=== PATIENT | male | born 1995 | race Caucasian/White ===

== ENCOUNTER 2019-02-08 12:43 | Observation (INO) | payer OTHER ==
[2019-02-08] MEDS ORDERED: Sodium Chloride 0.9% 1,000 ML IV ONE (14:21)
--- NOTE | 2019-02-08 14:25 | C.PDOC ---
History Of Present Illness 23 year old male presents to ED with complaint of infected abscess to the left upper extremity. Patient states that the abscess started as something small 2 weeks ago, but then became larger and starting draining. Patient has seeked no medical attention prior to today. He also complains of pain to the afflicted area. Patient denies IVDA. He denies fever, chills, diaphoresis, numbness, and weakness. Time Seen by Provider: 02/08/19 13:51 Chief Complaint (Nursing): Abnormal Skin Integrity History Per: Patient History/Exam Limitations: no limitations Onset/Duration Of Symptoms: Worse Since, Other (2 weeks) Current Symptoms Are (Timing): Still Present Quality Of Symptoms: Painful, Draining Past Medical History Reviewed: Historical Data, Nursing Documentation, Vital Signs Vital Signs: Last Vital Signs Temp 97.4 F L 02/08/19 12:52 Pulse 75 02/08/19 12:52 Resp 18 02/08/19 12:52 BP 113/74 02/08/19 12:52 Pulse Ox 100 02/08/19 12:52 - Medical History PMH: No Chronic Diseases Surgical History: No Surg Hx Family History: States: Unknown Family Hx - Social History Hx Alcohol Use: No Hx Substance Use: No - Immunization History Hx Tetanus Toxoid Vaccination: No Hx Influenza Vaccination: No Hx Pneumococcal Vaccination: No Review Of Systems Constitutional: Negative for: Fever, Chills, Weakness Musculoskeletal: Positive for: Arm Pain (left upper arm pain) Skin: Positive for: Other (infected, draining abscess to the left upper arm) Neurological: Negative for: Weakness, Numbness, Dizziness Physical Exam - Physical Exam Appears: Well, Non-toxic, No Acute Distress Skin: Normal Color, Warm, Dry Head: Atraumatic, Normacephalic Eye(s): bilateral: PERRL, EOMI Neck: Normal ROM, Supple Chest: Symmetrical, No Deformity Cardiovascular: Rhythm Regular, No Murmur Respiratory: No Accessory Muscle Use, No Rales, No Rhonchi, No Wheezing Gastrointestinal/Abdominal: Soft, No Tenderness Extremity: Normal ROM (able to flex the elbow of the left arm), Capillary Refill (<2 seconds), Other (3-4 cm fluctuant abscess with purulent drainage and surrounding cellulitis to the left upper arm that extends to the medial arm and is distal to the elbow, blanching and warm to touch) Pulses: Left Radial: Normal, Right Radial: Normal Neurological/Psych: Oriented x3, Normal Speech, Normal Cognition ED Course And Treatment - Laboratory Results Result Diagrams: 02/08/19 15:18 02/08/19 15:18 O2 Sat by Pulse Oximetry: 100 (in RA) Medical Decision Making Medical Decision Making: Impression: 23 year old male presents to ED with complaint of infected abscess to the left upper extremity. Plan: Labs ordered with CBC, blood culture, and wound culture. Patient given Zosyn IVPB, Motrin PO, and IV fluids. 1534 pt with absvess and surrounding cellu;itis crossing over joint; will admot to Dr Mancia for iv antibiotics Disposition Discussed With Dr.: Rena Mancia Doctor Will See Patient In The: Hospital Counseled Patient/Family Regarding: Diagnosis - Disposition Disposition: HOSPITALIZED Disposition Time: 15:55 Condition: GOOD Forms: [facility] ([place]) - Clinical Impression Clinical Impression: Cellulitis of left upper extremity, Abscess of left arm - PA / TIME STUDY CLERK / Resident Statement MD/DO has reviewed & agrees with the documentation as recorded. (Alva Wolff) - Scribe Statement The provider has reviewed the documentation as recorded by the Scribe (Alva Wolff) All medical record entries made by the Scribe were at my direction and personally dictated by me. I have reviewed the chart and agree that the record accurately reflects my personal performance of the history, physical exam, medical decision making, and the department course for this patient. I have also personally directed, reviewed, and agree with the discharge instructions and disposition.
[2019-02-08] MEDS ORDERED: Piperacillin/Tazobact 3.375 GM in Sodium Chloride 100 ML IVPB STA (14:31)
[2019-02-08 15:22] LABS: BASO # 0.1 K/uL (0.0-0.2); BASO % 0.9 % (0.0-2.0); EOS # 0.3 K/uL (0.0-0.7); EOS % 3.7 % (0.0-4.0); HEMOGLOBIN 14.7 g/dL (12.0-18.0); LYMPH # 1.9 K/uL (1.0-4.3); LYMPH % 22.2 % (20.0-40.0); MEAN CELL VOLUME 85.1 fL (80.0-94.0); MEAN CORPUSCULAR HEMOGLOBIN 28.7 pg (27.0-31.0); MEAN CORPUSCULAR HGB CONC 33.7 g/dL (33.0-37.0); MONO # 0.6 K/uL (0.0-0.8); MONO % 7.4 % (0.0-10.0); NEUT # 5.6 K/uL (1.8-7.0); NEUT % 65.8 % (50.0-75.0); RBC 5.14 Mil/uL (4.40-5.90); WHITE BLOOD COUNT 8.5 K/uL (4.8-10.8)
[2019-02-08 15:41] LABS: ALB/GLOB RATIO 1.6 (1.0-2.1); ALBUMIN 4.7 g/dL (3.5-5.0); ALT/SGPT 10 U/L (21-72); AST/SGOT 32 U/L (17-59); BLOOD UREA NITROGEN 15 mg/dL (9-20); CALCIUM 9.5 mg/dl (8.6-10.4); GFR NON-AFRICAN AMERICAN > 60
[2019-02-08] MEDS ORDERED: Tmp-Smz 800 mg-160 mg DS Tab PO STA (15:49)
[2019-02-08] MEDS ORDERED: Piperacillin/Tazobact 3.375 gm 100 ML IVPB ONE (16:03)
--- NOTE | 2019-02-08 16:49 | CP.PCM.HP ---
<Helena Garcia - Last Filed: 02/08/19 17:02> History of Present Illness - History of Present Illness History of Present Illness: Medicine H&P for Dr. Gonzalez's service CC: cellulitis w/ possible abscess Patient is a 23 yo w/ no PMH comes to ED for evaluation of left upper extremity redness with fluctuance and blood/water drainage. Patient states that this started two weeks ago. It got progressively worse with subjective fevers. Patient recently emigrated from [facility] and lives with his cousins. Patient states that it is painful if it is touched. Pain reports blood and water drainage. Denies previous episodes, IV drug use or trauma to the area. Patient states he took no medications at home. Patient denies chills, chest pain, sob, n/v, constipation or diarrhea, radiation of pain, and dysuria. PMH: Denies PSH: Denies FH: Denies Allergies: Denies Social: Denies etoh use, tobacco use, and recreational drug use PMD: None Code: Full code Present on Admission - Present on Admission Any Indicators Present on Admission: No Review of Systems - Review of Systems All systems: reviewed and no additional remarkable complaints except Review of Systems: see HPI Past Patient History - Infectious Disease Hx of Infectious Diseases: None - Past Social History Smoking Status: Never Smoked - PSYCHIATRIC Hx Substance Use: No - SURGICAL HISTORY Hx Surgeries: No - ANESTHESIA Hx Anesthesia: No Meds Allergies/Adverse Reactions: Allergies Allergy/AdvReac Type Severity Reaction Status Date / Time No Known Allergies Allergy Verified 02/08/19 12:57 Physical Exam - Constitutional Appears: Non-toxic, No Acute Distress - Head Exam Head Exam: NORMAL INSPECTION, NORMOCEPHALIC - Eye Exam Eye Exam: EOMI, Normal appearance. absent: Nystagmus, Scleral icterus - ENT Exam ENT Exam: Mucous Membranes Moist - Respiratory Exam Respiratory Exam: Clear to Auscultation Bilateral, NORMAL BREATHING PATTERN. absent: Rales, Rhonchi, Wheezes - Cardiovascular Exam Cardiovascular Exam: REGULAR RHYTHM, +S1, +S2. absent: Tachycardia - Extremities Exam Additional comments: left upper extremity near bicep region has demarcated erythema with fluctuance, visible is blood drainage through a superficial opening - Neurological Exam Neurological exam: Alert, Oriented x3 - Psychiatric Exam Psychiatric exam: Normal Affect, Normal Mood - Skin Skin Exam: Dry, Intact, Normal Color Results - Vital Signs Recent Vital Signs: Last Vital Signs Temp 97.4 F L 02/08/19 12:52 Pulse 75 02/08/19 12:52 Resp 18 02/08/19 12:52 BP 113/74 02/08/19 12:52 Pulse Ox 100 02/08/19 15:56 - Labs Result Diagrams: 02/08/19 15:18 02/08/19 15:18 Labs: Laboratory Results - last 24 hr 02/08/19 02/08/19 15:18 15:18 WBC 8.5 RBC 5.14 Hgb 14.7 Hct 43.7 MCV 85.1 MCH 28.7 MCHC 33.7 RDW 13.0 Plt Count 276 MPV 7.0 L Neut % (Auto) 65.8 Lymph % (Auto) 22.2 [place] % (Auto) 7.4 Eos % (Auto) 3.7 Baso % (Auto) 0.9 Neut # (Auto) 5.6 Lymph # (Auto) 1.9 [place] # (Auto) 0.6 Eos # (Auto) 0.3 Baso # (Auto) 0.1 Sodium 138 Potassium 4.2 Chloride 102 Carbon Dioxide 30 Anion Gap 11 BUN 15 Creatinine 0.8 Est GFR ( Amer) > 60 Est GFR (Non-Af Amer) > 60 Random Glucose 95 Calcium 9.5 Total Bilirubin 0.6 AST 32 ALT 10 L Alkaline Phosphatase 85 Total Protein 7.6 Albumin 4.7 Globulin 2.9 Albumin/Globulin Ratio 1.6 Assessment & Plan - Assessment and Plan (Free Text) Assessment: 23 yo male admitted for cellulitis with possible abscess. Blood drainage is noted. Plan: Left Upper Extremity Cellulitis w/ possible abscess afebrile, no white count Continue IV abx: Vanc 1gm IVPB q12; Zosyn 3.375gm IVPB q6 [address] Upper [address] CT with contrast pending to rule out abscess US pending of upper extremity Ibuprofen 400mg q6h chelly for swelling Repeat CBC, CMP in AM PPX GI: Florastor 250mg po bid DVT: not indicated Regular Diet Disposition: pending CT scan for possible surgical consult for drainage PGY-1 Helena Garcia Case d/w Dr. Gonzalez <Missy Gonzalez V - Last Filed: 02/08/19 17:41> Results - Vital Signs Recent Vital Signs: Last Vital Signs Temp 97.4 F L 02/08/19 12:52 Pulse 75 02/08/19 12:52 Resp 18 02/08/19 12:52 BP 113/74 02/08/19 12:52 Pulse Ox 100 02/08/19 15:56 - Labs Result Diagrams: 02/08/19 15:18 02/08/19 15:18 Labs: Laboratory Results - last 24 hr 02/08/19 02/08/19 15:18 15:18 WBC 8.5 RBC 5.14 Hgb 14.7 Hct 43.7 MCV 85.1 MCH 28.7 MCHC 33.7 RDW 13.0 Plt Count 276 MPV 7.0 L Neut % (Auto) 65.8 Lymph % (Auto) 22.2 [place] % (Auto) 7.4 Eos % (Auto) 3.7 Baso % (Auto) 0.9 Neut # (Auto) 5.6 Lymph # (Auto) 1.9 [place] # (Auto) 0.6 Eos # (Auto) 0.3 Baso # (Auto) 0.1 Sodium 138 Potassium 4.2 Chloride 102 Carbon Dioxide 30 Anion Gap 11 BUN 15 Creatinine 0.8 Est GFR ( Amer) > 60 Est GFR (Non-Af Amer) > 60 Random Glucose 95 Calcium 9.5 Total Bilirubin 0.6 AST 32 ALT 10 L Alkaline Phosphatase 85 Total Protein 7.6 Albumin 4.7 Globulin 2.9 Albumin/Globulin Ratio 1.6 Attending/Attestation - Attestation I have personally seen and examined this patient.: Yes I have fully participated in the care of the patient.: Yes I have reviewed all pertinent clinical information: Yes Notes (Text): Patient seen, examined and case discussed with day-time resident. Patient reports 2 week history of pimple which worsened over the past week; which he scratched at. He did not attempt medications or visit hospital. He noted the swelling worsen this week and redness got worse. patient afebrile, no white count. Concern for underlying abscess with associated cellulitis. Pulses in the arm is intact and rash is outline. patient will benefit from intravenous antibiotics given the severity of the cellulitis and may require surgery intervention pending the results of the CT scan and ultrasound. Assessment/Plan 1. Left Upper Extremity Cellulitis Possible Abscess Assessment/Plan * afebrile, no white count * Continue IV abx: Vanc 1gm IVPB q12; Zosyn 3.375gm IVPB q6 * Left Upper Extremity CT with contrast pending to rule out abscess * Nonextremity US pending of upper extremity left * May require surgery consult pending results * ordered for coagulation * Tylenol 650mg POq6H PRN moderate pain * Blood cultures ordered * Wound culture and gram stain 2. PPX * GI PPx: Florastor 250mg po bid * DVT PPx: not indicated * Regular Diet * NS 100cc/hr * SCDS b/l
[2019-02-08] MEDS ORDERED: Piperacill/Tazo 3.375gm in Dex 3.375 GM/50 ML BAG IVPB SCH (17:00)
[2019-02-08] MEDS ORDERED: Tmp-Smz 800 mg-160 mg DS Tab ONE (17:11)
[2019-02-08] MEDS ORDERED: Iodixanol 320 MG/ML 100 ML BOTTLE IV ONE (18:57)
[2019-02-08] MEDS: Sodium Chloride 0.9% 1,000 ML IV SCH (19:13)
[2019-02-08] MEDS ORDERED: Vancomycin 1 GM 0 GM/0 ML BAG IVPB ONE (20:11)
[2019-02-08] MEDS: Vancomycin 1 gm/NS 200 ml 1 GM/200 ML BAG IVPB SCH (20:21)
[2019-02-08] MEDS: Saccharomyces Boulardi 250 mg Cap PO SCH (20:23)
[2019-02-08 20:40] LABS: BARBITURATES, UR NEGATIVE (NEGATIVE); BENZODIAZEPINES, UR NEGATIVE (NEGATIVE); OPIATES, UR NEGATIVE (NEGATIVE)
[2019-02-08 20:41] LABS: PHENCYCLIDINE, UR NEGATIVE (NEGATIVE)
[2019-02-08 20:49] LABS: INR 1.1; PROTHROMBIN TIME 12.4 SECONDS (9.7-12.2)
[2019-02-08 21:40] VITALS: RESP 20
[2019-02-08] MEDS: Piperacill/Tazo 3.375gm in Dex 3.375 GM/50 ML BAG IVPB SCH (22:23)
[2019-02-09] MEDS: Piperacill/Tazo 3.375gm in Dex 3.375 GM/50 ML BAG IVPB SCH ×4 (03:40→21:45)
[2019-02-09] MEDS: Sodium Chloride 0.9% 1,000 ML IV SCH ×3 (03:41→14:06)
[2019-02-09] MEDS: Vancomycin 1 gm/NS 200 ml 1 GM/200 ML BAG IVPB SCH ×2 (04:40→17:40)
[2019-02-09 08:22] LABS: BASO % 0.5 % (0.0-2.0); EOS # 0.3 K/uL (0.0-0.7); EOS % 4.2 % (0.0-4.0); HEMOGLOBIN 13.5 g/dL (12.0-18.0); LYMPH # 2.4 K/uL (1.0-4.3); LYMPH % 32.6 % (20.0-40.0); MEAN CELL VOLUME 86.1 fL (80.0-94.0); MEAN CORPUSCULAR HGB CONC 33.7 g/dL (33.0-37.0); MEAN PLATELET VOLUME 7.2 fL (7.2-11.7); MONO # 0.6 K/uL (0.0-0.8); MONO % 7.6 % (0.0-10.0); NEUT # 4.1 K/uL (1.8-7.0); NEUT % 55.1 % (50.0-75.0); RBC 4.66 Mil/uL (4.40-5.90); RED CELL DISTRIBUTION WIDTH 12.9 % (11.5-14.5); WHITE BLOOD COUNT 7.5 K/uL (4.8-10.8)
[2019-02-09 08:39] LABS: ALB/GLOB RATIO 1.5 (1.0-2.1); ALBUMIN 3.9 g/dL (3.5-5.0); ALT/SGPT 19 U/L (21-72); AST/SGOT 25 U/L (17-59); BLOOD UREA NITROGEN 12 mg/dL (9-20); GFR NON-AFRICAN AMERICAN > 60
--- NOTE | 2019-02-09 09:24 | CP.PCM.PN ---
<Helena Garcia - Last Filed: 02/09/19 10:41> Subjective - Date & Time of Evaluation Date of Evaluation: 02/09/19 Time of Evaluation: 09:21 - Subjective Subjective: Medicine Progress Note for Dr. Gonzalez's service S/E at bedside. Denies pain on left extremity. Denies fevers, chills, chest pain, sob, n/v, constipation or diarrhea, and dysuria. Objective - Vital Signs/Intake and Output Vital Signs (last 24 hours): Temp Pulse Resp BP Pulse Ox 97.4 F L 60 20 118/60 99 02/09/19 07:00 02/09/19 07:00 02/09/19 07:00 02/09/19 07:00 02/09/19 07:00 Intake and Output: 02/09/19 02/09/19 06:59 18:59 Intake Total 1020 Output Total 400 Balance 620 - Medications Medications: Current Medications Acetaminophen (Tylenol 325mg Tab) 650 mg PO Q6 PRN PRN Reason: Pain, moderate (4-7) Vancomycin/Sodium Chloride (Vancomycin 1 Gm/Ns 200 Ml) 1 gm in 200 mls @ 133 mls/hr IVPB Q12H [facility]; Protocol Stop: 02/13/19 17:01 Last Admin: 02/09/19 04:40 Dose: 133 mls/hr Piperacillin Sod/Tazobactam Sod (Zosyn 3.375 Gm Iv Premix) 3.375 gm in 50 mls @ 100 mls/hr IVPB Q6H [facility]; Protocol Last Admin: 02/09/19 03:40 Dose: 100 mls/hr Sodium Chloride (Sodium Chloride 0.9%) 1,000 mls @ 100 mls/hr IV .Q10H [facility] Last Admin: 02/09/19 03:41 Dose: Not Given Pneumococcal Polyvalent Vaccine (Pneumovax 23 Vaccine) 0.5 ml IM .ONCE ONE Stop: 02/10/19 10:01 Saccharomyces Boulardii (Florastor) 250 mg PO BID [facility] Last Admin: 02/08/19 20:23 Dose: 250 mg - Labs Labs: 02/09/19 08:10 02/09/19 08:10 PT 12.4 SECONDS (9.7-12.2) H 02/08/19 20:44 INR 1.1 02/08/19 20:44 - Constitutional Appears: Non-toxic, No Acute Distress - Head Exam Head Exam: NORMAL INSPECTION, NORMOCEPHALIC - Eye Exam Eye Exam: EOMI, Normal appearance. absent: Nystagmus, Scleral icterus - ENT Exam ENT Exam: Mucous Membranes Moist - Respiratory Exam Respiratory Exam: Clear to Ausculation Bilateral, NORMAL BREATHING PATTERN. absent: Rales, Rhonchi, Wheezes - Cardiovascular Exam Cardiovascular Exam: REGULAR RHYTHM, +S1, +S2 - GI/Abdominal Exam GI & Abdominal Exam: Soft, Normal Bowel Sounds. absent: Firm, Guarding, Rigid, Tenderness - Extremities Exam Additional comments: left upper extremity erythema decreased from demcarcation line swelling has decreased no blood actively draining - Neurological Exam Neurological Exam: Awake, Oriented x3 - Psychiatric Exam Psychiatric exam: Normal Affect, Normal Mood - Skin Skin Exam: Dry, Intact, Normal Color Assessment and Plan - Assessment and Plan (Free Text) Assessment: 23 yo male w/ no PMH admitted for cellulitis with possible abscess Plan: Left Upper Extremity Cellulitis w/ possible abscess afebrile, no white count Continue IV abx: Vanc 1gm IVPB q12; Zosyn 3.375gm IVPB q6 Left Upper Extremity CT with contrast pending to rule out abscess US pending of upper extremity gram stain negative; wound cx pending NS @ 100mls/hrs PPX GI: Florastor 250mg po bid DVT: not indicated NPO diet Regular Diet Tylenol PRN Disposition: pending CT scan PGY-1 Helena Garcia Case d/w Dr. Gonzalez <Missy Gonzalez V - Last Filed: 02/09/19 21:39> Objective - Vital Signs/Intake and Output Vital Signs (last 24 hours): Temp Pulse Resp BP Pulse Ox 98.7 F 73 20 105/61 97 02/09/19 15:00 02/09/19 15:00 02/09/19 15:00 02/09/19 15:00 02/09/19 20:20 - Medications Medications: Current Medications Acetaminophen (Tylenol 325mg Tab) 650 mg PO Q6 PRN PRN Reason: Pain, moderate (4-7) Vancomycin/Sodium Chloride (Vancomycin 1 Gm/Ns 200 Ml) 1 gm in 200 mls @ 133 mls/hr IVPB Q12H [facility]; Protocol Stop: 02/13/19 17:01 Last Admin: 02/09/19 17:40 Dose: 133 mls/hr Piperacillin Sod/Tazobactam Sod (Zosyn 3.375 Gm Iv Premix) 3.375 gm in 50 mls @ 100 mls/hr IVPB Q6H [facility]; Protocol Last Admin: 02/09/19 16:43 Dose: 100 mls/hr Sodium Chloride (Sodium Chloride 0.9%) 1,000 mls @ 100 mls/hr IV .Q10H [facility] Last Admin: 02/09/19 14:06 Dose: Not Given Influenza Virus Vaccine (Flucelvax Quad 5705-2258 Syr) 60 mcg IM .ONCE ONE Stop: 02/10/19 10:01 Pneumococcal Polyvalent Vaccine (Pneumovax 23 Vaccine) 0.5 ml IM .ONCE ONE Stop: 02/10/19 10:01 Saccharomyces Boulardii (Florastor) 250 mg PO BID [facility] Last Admin: 02/09/19 17:41 Dose: 250 mg - Labs Labs: 02/09/19 08:10 02/09/19 08:10 PT 12.4 SECONDS (9.7-12.2) H 02/08/19 20:44 INR 1.1 02/08/19 20:44 Attending/Attestation - Attestation I have personally seen and examined this patient.: Yes I have fully participated in the care of the patient.: Yes I have reviewed all pertinent clinical information, including history, physical exam and plan: Yes Notes (Text): Patient seen, examined and case discussed with day-time resident. Patient seen at bedside this morning. Patient's swelling over the left upper extremity has reduced compared to yesterday but warrants I&D. Surgery consulted. Patient is on empiric IV Abx. Assessment/Plan 1. Left Upper Extremity Cellulitis Possible Abscess Assessment/Plan * afebrile, no white count * surgery (Dr. Lau) on case help appreciated * Continue IV abx: Vanc 1gm IVPB q12; Zosyn 3.375gm IVPB q6 * Left Upper Extremity CT with contrast (02/09/19); probably cellulitis of ventral distal upper arm. No abscess identified. * Nonextremity US skin thickening suspicous for cellulitis. focal subcutaneous fluid collection without definitive evidence of defined wall. * Tylenol 650mg POq6H PRN moderate pain * Blood cultures (02/08/19): no growth after 24hours X2 * Wound culture and gram stain (02/08/19); Staph aureus 2. PPX * GI PPx: Florastor 250mg po bid * DVT PPx: not indicated * Regular Diet * NS 100cc/hr * SCDS b/l
--- NOTE | 2019-02-09 09:36 | CP.PCM.CON ---
History of Present Illness - History of Present Illness History of Present Illness: Surgical Consult Note for Dr. Lau HPI: Patient is a 23 [address] [facility] male who presents for swelling and pain to his left upper arm associated with subjective fevers that has been worsening over the past 2 weeks. He denies any known trauma, IV drug use, insect bite. He has not applied any topical or taken any oral medications. He states he has never had this before. He states that initially the area bled a little bit. He recently moved here from [facility]. He denies chest pain, shortness of breath, abdominal pain, nausea, vomiting, diarrhea, constipation, urinary symptoms, leg pain or swelling. PMH: none PSH: none Allergies: NKDA Social hx: denies tobacco use, intermittent alcohol use, denies drug use. Family hx: non contributory Home meds: none Past Patient History - Infectious Disease Hx of Infectious Diseases: None - Past Social History Smoking Status: Never Smoked - PSYCHIATRIC Hx Substance Use: No - SURGICAL HISTORY Hx Surgeries: No - ANESTHESIA Hx Anesthesia: No Meds Allergies/Adverse Reactions: Allergies Allergy/AdvReac Type Severity Reaction Status Date / Time No Known Allergies Allergy Verified 02/08/19 12:57 - Medications Medications: Current Medications Acetaminophen (Tylenol 325mg Tab) 650 mg PO Q6 PRN PRN Reason: Pain, moderate (4-7) Vancomycin/Sodium Chloride (Vancomycin 1 Gm/Ns 200 Ml) 1 gm in 200 mls @ 133 mls/hr IVPB Q12H [facility]; Protocol Stop: 02/13/19 17:01 Last Admin: 02/09/19 04:40 Dose: 133 mls/hr Piperacillin Sod/Tazobactam Sod (Zosyn 3.375 Gm Iv Premix) 3.375 gm in 50 mls @ 100 mls/hr IVPB Q6H [facility]; Protocol Last Admin: 02/09/19 03:40 Dose: 100 mls/hr Sodium Chloride (Sodium Chloride 0.9%) 1,000 mls @ 100 mls/hr IV .Q10H [facility] Last Admin: 02/09/19 03:41 Dose: Not Given Pneumococcal Polyvalent Vaccine (Pneumovax 23 Vaccine) 0.5 ml IM .ONCE ONE Stop: 02/10/19 10:01 Saccharomyces Boulardii (Florastor) 250 mg PO BID [facility] Last Admin: 02/08/19 20:23 Dose: 250 mg Physical Exam - Constitutional Appears: Well, No Acute Distress - Head Exam Head Exam: ATRAUMATIC, NORMOCEPHALIC - Eye Exam Eye Exam: EOMI, PERRL - ENT Exam ENT Exam: Mucous Membranes Moist - Respiratory Exam Respiratory Exam: NORMAL BREATHING PATTERN - Cardiovascular Exam Cardiovascular Exam: REGULAR RHYTHM, +S1, +S2 - GI/Abdominal Exam GI & Abdominal Exam: Normal Bowel Sounds, Soft - Extremities Exam Extremities exam: Negative for: calf tenderness Additional comments: Left upper extremity: erythematous, warm indurated region decreasing in size from previously marked area with quarter-sized ulceration that is mildly fluctuant, no active drainage on left upper arm. Good ROM of shoulder and elbow. Good distal pulses. - Neurological Exam Neurological exam: Alert, Oriented x3 - Psychiatric Exam Psychiatric exam: Normal Affect, Normal Mood Results - Vital Signs Recent Vital Signs: Last Vital Signs Temp 97.4 F L 02/09/19 07:00 Pulse 60 02/09/19 07:00 Resp 20 02/09/19 07:00 BP 118/60 02/09/19 07:00 Pulse Ox 99 02/09/19 07:00 - Labs Result Diagrams: 02/09/19 08:10 02/09/19 08:10 Labs: Laboratory Results - last 24 hr 02/08/19 02/08/19 02/08/19 15:18 15:18 18:11 WBC 8.5 RBC 5.14 Hgb 14.7 Hct 43.7 MCV 85.1 MCH 28.7 MCHC 33.7 RDW 13.0 Plt Count 276 MPV 7.0 L Neut % (Auto) 65.8 Lymph % (Auto) 22.2 [place] % (Auto) 7.4 Eos % (Auto) 3.7 Baso % (Auto) 0.9 Neut # (Auto) 5.6 Lymph # (Auto) 1.9 [place] # (Auto) 0.6 Eos # (Auto) 0.3 Baso # (Auto) 0.1 PT INR Sodium 138 Potassium 4.2 Chloride 102 Carbon Dioxide 30 Anion Gap 11 BUN 15 Creatinine 0.8 Est GFR ( Amer) > 60 Est GFR (Non-Af Amer) > 60 Random Glucose 95 Calcium 9.5 Phosphorus Magnesium Total Bilirubin 0.6 AST 32 ALT 10 L Alkaline Phosphatase 85 Total Protein 7.6 Albumin 4.7 Globulin 2.9 Albumin/Globulin Ratio 1.6 Urine Opiates Screen Negative Urine Methadone Screen Negative Ur Barbiturates Screen Negative Ur Phencyclidine Scrn Negative Ur Amphetamines Screen Negative U Benzodiazepines Scrn Negative U Oth Cocaine Metabols Negative U Cannabinoids Screen Negative 02/08/19 02/09/19 02/09/19 20:44 08:10 08:10 WBC 7.5 RBC 4.66 Hgb 13.5 Hct 40.1 MCV 86.1 MCH 29.0 MCHC 33.7 RDW 12.9 Plt Count 266 MPV 7.2 Neut % (Auto) 55.1 Lymph % (Auto) 32.6 [place] % (Auto) 7.6 Eos % (Auto) 4.2 H Baso % (Auto) 0.5 Neut # (Auto) 4.1 Lymph # (Auto) 2.4 [place] # (Auto) 0.6 Eos # (Auto) 0.3 Baso # (Auto) 0.0 PT 12.4 H INR 1.1 Sodium 139 Potassium 3.7 Chloride 108 H Carbon Dioxide 25 Anion Gap 10 BUN 12 Creatinine 0.9 Est GFR ( Amer) > 60 Est GFR (Non-Af Amer) > 60 Random Glucose 85 Calcium 9.0 Phosphorus 4.0 Magnesium 2.1 Total Bilirubin 0.7 AST 25 ALT 19 L D Alkaline Phosphatase 64 Total Protein 6.4 Albumin 3.9 Globulin 2.5 Albumin/Globulin Ratio 1.5 Urine Opiates Screen Urine Methadone Screen Ur Barbiturates Screen Ur Phencyclidine Scrn Ur Amphetamines Screen U Benzodiazepines Scrn U Oth Cocaine Metabols U Cannabinoids Screen Assessment & Plan - Assessment and Plan (Free Text) Assessment: 23 year old male who presents for cellulitis of left arm. Plan: CT of upper extremity: probable cellulitis, no abscess Bedside I&D performed to encourage drainage Continue to monitor Wound culture obtained from bedside incision and drainage Jodi Ferguson, PGY1
--- NOTE | 2019-02-09 09:43 | CT ---
Date of service: 02/08/2019 PROCEDURE: CT left upper extremity HISTORY: rule out abscess COMPARISON: Ultrasound left upper extremity 02/08/2019 TECHNIQUE: 2.5 mm contiguous axial sections were acquired through the left shoulder to the antecubital fossa. Sagittal and coronal images were reformatted from the axial scan. Total exam DLP: 1175.19 mGy-cm. This CT exam was performed using 1 or more of the following dose reduction techniques: Automated exposure control, adjustment of the mA and/or kV according to patient size, and/or use of iterative reconstruction technique. FINDINGS: There is no fracture. There is no lytic or blastic osseous lesion. The glenohumeral and acromioclavicular articulations are unremarkable. The articulations of the elbow were not included in this examination. There is cutaneous thickening over the ventral aspect of the distal upper arm just proximal to the antecubital fossa. This most likely reflects cellulitis. There is no fluid collection or soft tissue mass identified. IMPRESSION: Probable cellulitis of ventral distal upper arm. No abscess identified. The preliminary findings for this examination were reported by [facility] at 8:36 p.m. on 02/08/2019. There is discordance of this report with the preliminary findings. Focal cutaneous thickening in the region of concern was not described in the preliminary report of this examination.
[2019-02-09] MEDS: Saccharomyces Boulardi 250 mg Cap PO SCH ×2 (10:08→17:41)
[2019-02-09] MEDS ORDERED: Lidocaine/Prilocaine 2.5%-2.5% Cream (5 gm) TOP STA (11:19)
--- NOTE | 2019-02-09 11:48 | US ---
Date of service: 02/08/2019 PROCEDURE: Limited left upper extremity ultrasound HISTORY: rule out abscess COMPARISON: No prior study for comparison TECHNIQUE: Matted focal ultrasound examination of the left upper extremity at the region of interest was performed. FINDINGS: The study demonstrate focal wall thickening and subcutaneous fluid collection measures approximately 2.8 centimeter in the transverse diameter 1 centimeter in the AP diameter and 2.3 centimeter in the longitudinal diameter may represent subcutaneous fluid collection. The possibility of an air early abscess formation is not totally excluded. IMPRESSION: Skin thickening suspicious for cellulitis. Focal subcutaneous fluid collection without definite evidence of with defined wall. The differential consideration includes focal edema versus an early abscess formation.
--- NOTE | 2019-02-09 12:45 | PCM.PROC ---
Incision and Drainage - Time Out Time Out: Side verified, Site verified, Sterile procedures obs. - Consent obtained Consent obtained: Written - Performed by Performed by: Mid-level Provider - Indications Indications: Cutaneous abscess - Contraindications Contraindications: None - Location Location: Left, Arm (upper)abscess/nadir - Dimensions Dimensions Length cm: 1.5 Dimensions width cm: 1.5 - Anesthetic Technique Anesthetic Technique: Topical - Anesthetic Anesthetic: EMLA - Procedure Procedure: Usual prep and drape, cm incision (1), Overlying area fluctuance, # scalpel used (11) - Drained Drained: ml blood (3) - Post-procedure Post procedure: Dressed - Complications Complications: None - Patient tolerated procedure Patient tolerated procedure: Well
[2019-02-09 20:23] VITALS: O2SAT 97
[2019-02-10] MEDS: Sodium Chloride 0.9% 1,000 ML IV SCH ×2 (00:25→10:19)
[2019-02-10] MEDS: Piperacill/Tazo 3.375gm in Dex 3.375 GM/50 ML BAG IVPB SCH ×2 (04:22→10:23)
[2019-02-10] MEDS: Vancomycin 1 gm/NS 200 ml 1 GM/200 ML BAG IVPB SCH (05:03)
[2019-02-10 06:52] LABS: BASO % 0.6 % (0.0-2.0); EOS # 0.4 K/uL (0.0-0.7); EOS % 6.2 % (0.0-4.0); HEMOGLOBIN 13.7 g/dL (12.0-18.0); LYMPH # 2.4 K/uL (1.0-4.3); LYMPH % 35.5 % (20.0-40.0); MEAN CELL VOLUME 86.1 fL (80.0-94.0); MEAN CORPUSCULAR HEMOGLOBIN 29.1 pg (27.0-31.0); MEAN CORPUSCULAR HGB CONC 33.8 g/dL (33.0-37.0); MEAN PLATELET VOLUME 7.2 fL (7.2-11.7); MONO # 0.5 K/uL (0.0-0.8); MONO % 7.4 % (0.0-10.0); NEUT # 3.4 K/uL (1.8-7.0); NEUT % 50.3 % (50.0-75.0); RBC 4.7 Mil/uL (4.40-5.90); RED CELL DISTRIBUTION WIDTH 12.8 % (11.5-14.5); WHITE BLOOD COUNT 6.7 K/uL (4.8-10.8)
[2019-02-10 07:31] LABS: ALB/GLOB RATIO 1.5 (1.0-2.1); ALBUMIN 3.7 g/dL (3.5-5.0); ALT/SGPT 6 U/L (21-72); AST/SGOT 23 U/L (17-59); BLOOD UREA NITROGEN 10 mg/dL (9-20); CALCIUM 8.9 mg/dl (8.6-10.4); GFR NON-AFRICAN AMERICAN > 60
--- NOTE | 2019-02-10 07:50 | CP.PCM.PN ---
Subjective - Date & Time of Evaluation Date of Evaluation: 02/10/19 Time of Evaluation: 07:48 - Subjective Subjective: General Surgery - Dr. Lau Pt AMOS&Stephany KRUEGER. Pt had I&D of Left arm abscess yesterday. He has been doing warm compresses overnight. Today he states that he feels much better. He denies any fevers/chills/sob/chestpain/nausea/vomiting. Objective - Vital Signs/Intake and Output Vital Signs (last 24 hours): Temp Pulse Resp BP Pulse Ox 98.2 F 60 20 107/63 97 02/10/19 00:00 02/10/19 00:00 02/10/19 00:00 02/10/19 00:00 02/10/19 00:05 Intake and Output: 02/10/19 02/10/19 06:59 18:59 Intake Total 1850 Balance 1850 - Medications Medications: Current Medications Acetaminophen (Tylenol 325mg Tab) 650 mg PO Q6 PRN PRN Reason: Pain, moderate (4-7) Vancomycin/Sodium Chloride (Vancomycin 1 Gm/Ns 200 Ml) 1 gm in 200 mls @ 133 mls/hr IVPB Q12H SUNITA; Protocol Stop: 02/13/19 17:01 Last Admin: 02/10/19 05:03 Dose: 133 mls/hr Piperacillin Sod/Tazobactam Sod (Zosyn 3.375 Gm Iv Premix) 3.375 gm in 50 mls @ 100 mls/hr IVPB Q6H SUNITA; Protocol Last Admin: 02/10/19 04:22 Dose: 100 mls/hr Sodium Chloride (Sodium Chloride 0.9%) 1,000 mls @ 100 mls/hr IV .Q10H SUNITA Last Admin: 02/10/19 00:25 Dose: 100 mls/hr Influenza Virus Vaccine (Flucelvax Quad 2500-2204 Syr) 60 mcg IM .ONCE ONE Stop: 02/10/19 10:01 Pneumococcal Polyvalent Vaccine (Pneumovax 23 Vaccine) 0.5 ml IM .ONCE ONE Stop: 02/10/19 10:01 Saccharomyces Boulardii (Florastor) 250 mg PO BID SUNITA Last Admin: 02/09/19 17:41 Dose: 250 mg - Labs Labs: 02/10/19 06:41 02/10/19 06:41 PT 12.4 SECONDS (9.7-12.2) H 02/08/19 20:44 INR 1.1 02/08/19 20:44 - Constitutional Appears: Well, No Acute Distress - Head Exam Head Exam: ATRAUMATIC, NORMAL INSPECTION, NORMOCEPHALIC - Eye Exam Eye Exam: Normal appearance - ENT Exam ENT Exam: Mucous Membranes Moist - Respiratory Exam Respiratory Exam: NORMAL BREATHING PATTERN. absent: Respiratory Distress - Cardiovascular Exam Cardiovascular Exam: REGULAR RHYTHM - Extremities Exam Additional comments: Left antecubital fossa abscess s/p I&D with decreased erythema and indruation, no drainage or packing, dressing changed with gauze - Neurological Exam Neurological Exam: Alert, Oriented x3 - Psychiatric Exam Psychiatric exam: Normal Affect, Normal Mood - Skin Skin Exam: Dry, Intact Assessment and Plan - Assessment and Plan (Free Text) Assessment: 23 yo M s/p I&D of L arm abscess -Continue ABx -Cultures: S. Aureus -Continue warm compress -Daily dressing change with dry gauze -No further surgery needed -Surgery will sign off, reconsult prn SANTOS Brizuela PGY4
[2019-02-10 07:55] VITALS: BP 104/61; PULSE 67; TEMP 97.9
[2019-02-10] MEDS ORDERED: Pneumococcal 23-Valent Vaccine IM ONE (10:00)
[2019-02-10] MEDS ORDERED: Influenza Vaccine 60 mcg/0.5 mL SYR (4YR UP) IM ONE (10:00)
[2019-02-10] MEDS: Saccharomyces Boulardi 250 mg Cap PO SCH (10:17)
--- NOTE | 2019-02-10 11:35 | CP.PCM.DIS ---
<Helena Garcia - Last Filed: 02/10/19 11:31> Provider - Provider Date of Admission: 02/08/19 15:56 Attending physician: Rena Mancia MD Consults: 02/08/19 22:05 Wound Care [Nursing Referral for Wound Care] Routine Comment: Physician Instructions: Reason For Exam: abscess on the left upper arm 02/09/19 09:21 General Surgery Consult Routine Comment: Consulting Provider: Sal Lau Consulting Physician: Sal Lau Reason for Consult: abscess, left upper arm Time Spent in preparation of Discharge (in minutes): 30 Hospital Course - Lab Results Lab Results: Micro Results 02/08/19 15:08 Abscess - Arm-Left Gram Stain - Final 02/08/19 15:08 Abscess - Arm-Left Wound Culture - Final Methicillin Resistant S Aureus 02/08/19 15:45 Blood Blood Culture - Preliminary NO GROWTH AFTER 24 HOURS 02/08/19 15:15 Blood Blood Culture - Preliminary NO GROWTH AFTER 24 HOURS Most Recent Lab Values WBC 6.7 K/uL (4.8-10.8) 02/10/19 06:41 RBC 4.70 Mil/uL (4.40-5.90) 02/10/19 06:41 Hgb 13.7 g/dL (12.0-18.0) 02/10/19 06:41 Hct 40.5 % (35.0-51.0) 02/10/19 06:41 MCV 86.1 fL (80.0-94.0) 02/10/19 06:41 MCH 29.1 pg (27.0-31.0) 02/10/19 06:41 MCHC 33.8 g/dL (33.0-37.0) 02/10/19 06:41 RDW 12.8 % (11.5-14.5) 02/10/19 06:41 Plt Count 265 K/uL (130-400) 02/10/19 06:41 MPV 7.2 fL (7.2-11.7) 02/10/19 06:41 Neut % (Auto) 50.3 % (50.0-75.0) 02/10/19 06:41 Lymph % (Auto) 35.5 % (20.0-40.0) 02/10/19 06:41 [place] % (Auto) 7.4 % (0.0-10.0) 02/10/19 06:41 Eos % (Auto) 6.2 % (0.0-4.0) H 02/10/19 06:41 Baso % (Auto) 0.6 % (0.0-2.0) 02/10/19 06:41 Neut # (Auto) 3.4 K/uL (1.8-7.0) 02/10/19 06:41 Lymph # (Auto) 2.4 K/uL (1.0-4.3) 02/10/19 06:41 [place] # (Auto) 0.5 K/uL (0.0-0.8) 02/10/19 06:41 Eos # (Auto) 0.4 K/uL (0.0-0.7) 02/10/19 06:41 Baso # (Auto) 0.0 K/uL (0.0-0.2) 02/10/19 06:41 PT 12.4 SECONDS (9.7-12.2) H 02/08/19 20:44 INR 1.1 02/08/19 20:44 Sodium 138 mmol/L (132-148) 02/10/19 06:41 Potassium 3.6 mmol/L (3.6-5.2) 02/10/19 06:41 Chloride 107 mmol/L (98-107) 02/10/19 06:41 Carbon Dioxide 25 mmol/L (22-30) 02/10/19 06:41 Anion Gap 10 (10-20) 02/10/19 06:41 BUN 10 mg/dL (9-20) 02/10/19 06:41 Creatinine 0.9 mg/dL (0.8-1.5) 02/10/19 06:41 Est GFR ( Amer) > 60 02/10/19 06:41 Est GFR (Non-Af Amer) > 60 02/10/19 06:41 Random Glucose 92 mg/dL (75-110) 02/10/19 06:41 Calcium 8.9 mg/dl (8.6-10.4) 02/10/19 06:41 Phosphorus 3.4 mg/dL (2.5-4.5) 02/10/19 06:41 Magnesium 2.1 mg/dL (1.6-2.3) 02/10/19 06:41 Total Bilirubin 0.7 mg/dL (0.2-1.3) 02/10/19 06:41 AST 23 U/L (17-59) 02/10/19 06:41 ALT 6 U/L (21-72) L D 02/10/19 06:41 Alkaline Phosphatase 71 U/L (38-126) 02/10/19 06:41 Total Protein 6.2 g/dL (6.3-8.3) L 02/10/19 06:41 Albumin 3.7 g/dL (3.5-5.0) 02/10/19 06:41 Globulin 2.5 gm/dL (2.2-3.9) 02/10/19 06:41 Albumin/Globulin Ratio 1.5 (1.0-2.1) 02/10/19 06:41 Urine Opiates Screen Negative (NEGATIVE) 02/08/19 18:11 Urine Methadone Screen Negative (NEGATIVE) 02/08/19 18:11 Ur Barbiturates Screen Negative (NEGATIVE) 02/08/19 18:11 Ur Phencyclidine Scrn Negative (NEGATIVE) 02/08/19 18:11 Ur Amphetamines Screen Negative (NEGATIVE) 02/08/19 18:11 U Benzodiazepines Scrn Negative (NEGATIVE) 02/08/19 18:11 U Oth Cocaine Metabols Negative (NEGATIVE) 02/08/19 18:11 U Cannabinoids Screen Negative (NEGATIVE) 02/08/19 18:11 - Hospital Course Hospital Course: Upon Admission Patient is a 23 yo w/ no PMH comes to ED for evaluation of left upper extremity redness with fluctuance and blood/water drainage. Patient states that this started two weeks ago. It got progressively worse with subjective fevers. Patient recently emigrated from [facility] and lives with his cousins. Patient states that it is painful if it is touched. Pain reports blood and water drainage. Denies previous episodes, IV drug use or trauma to the area. Patient states he took no medications at home. Patient denies chills, chest pain, sob, n/v, constipation or diarrhea, radiation of pain, and dysuria. Hospital Course Patient admitted for cellulitis with abscess. Afebrile w/ white count on admission. IV abx were initiated which resulted in markedly decreased swelling and erythema. Surgical consult was placed who did bedside I&D. Dressed right upper extremity with keflex and gauze. No drainage was noted s/p I&D from medicine team. Discharged with instructions as below. Discharge Plan 1. Patient is stable for discharge to home as per Dr. Gonzalez. 2. Patient was given instructions to do daily wound changes with mupirocin cream. 3. Patient was given oral antibiotic Bactrim to be taken twice a day for next 4 days. 4. Patient will need to follow up with [facility] with 3-7 days of discharge from hospital. 5. Patient should return to hospital if symptoms worsen or recur. 6. Patient understands the plan as above and agrees. 1. El paciente se encuentra estable para el avel a domicilio segn el Dr. Gonzalez. 2. Se le dieron instrucciones al paciente para hacer cambios diarios en la herida con crema de mupirocina. 3. El paciente recibi antibiticos orales Bactrim para tomarse dos veces al da matthew los siguientes 4 mercedes. 4. El paciente deber realizar un seguimiento en [facility] con 3-7 mercedes de avel hospitalaria. 5. El paciente debe regresar al hospital si los sntomas empeoran o reaparecen. 6. El paciente entiende el plan elliot est arriba y est de acuerdo. Disclaimer: Above is synopsis of patient's current hospital admission. For full report refer to EMR. Discharge Exam - Head Exam Head Exam: ATRAUMATIC, NORMAL INSPECTION, NORMOCEPHALIC - Eye Exam Eye Exam: EOMI, Normal appearance. absent: Nystagmus, Scleral icterus - ENT Exam ENT Exam: Mucous Membranes Moist - Respiratory Exam Respiratory Exam: NORMAL BREATHING PATTERN - Cardiovascular Exam Cardiovascular Exam: REGULAR RHYTHM, +S1, +S2 - GI/Abdominal Exam GI & Abdominal Exam: Normal Bowel Sounds, Soft. absent: Tenderness - Extremities Exam Additional comments: markedly reduced edema and swelling at site of cellulits with abscess on right upper extremity no drainage could be expressed keflex with gauze dressing - Neurological Exam Neurological exam: Alert, Oriented x3 - Psychiatric Exam Psychiatric exam: Normal Affect, Normal Mood - Skin Skin Exam: Dry, Intact, Normal Color Discharge Plan - Discharge Medications Prescriptions: RX: Mupirocin 2% Cream [Bactroban Cream] 30 applic TOP BID #1 tube Saccharomyces Boulardi [Florastor] 250 mg PO BID #8 cap Sulfamethoxazole/Trimethoprim [Bactrim DS 800 mg-160 mg] 1 tab PO BID #8 tab - Follow Up Plan Condition: GOOD Disposition: HOME/ ROUTINE Instructions: Cellulitis (DC), Cellulitis (GEN), Abscess (GEN) Additional Instructions: 1. Patient is stable for discharge to home as per Dr. Gonzalez. 2. Patient was given instructions to do daily wound changes with mupirocin cream. 3. Patient was given oral antibiotic Bactrim to be taken twice a day for next 4 days. 4. Patient will need to follow up with [facility] with 3-7 days of discharge from hospital. 5. Patient should return to hospital if symptoms worsen or recur. 6. Patient understands the plan as above and agrees. 1. El paciente se encuentra estable para el avel a domicilio segn el Dr. Gonzalez. 2. Se le dieron instrucciones al paciente para hacer cambios diarios en la herida con crema de mupirocina. 3. El paciente recibi antibiticos orales Bactrim para tomarse dos veces al da matthew los siguientes 4 mercedes. 4. El paciente deber realizar un seguimiento en [facility] con 3-7 mercedes de avel hospitalaria. 5. El paciente debe regresar al hospital si los sntomas empeoran o reaparecen. 6. El paciente entiende el plan elliot est arriba y est de acuerdo. Referrals: [id number] [Provider Group] Rox Garcias MD [Staff Provider] - <Missy Gonzalez V - Last Filed: 02/10/19 18:28> Provider - Provider Date of Admission: 02/08/19 15:56 Attending physician: Rena Mancia MD Consults: 02/08/19 22:05 Wound Care [Nursing Referral for Wound Care] Routine Comment: Physician Instructions: Reason For Exam: abscess on the left upper arm 02/09/19 09:21 General Surgery Consult Routine Comment: Consulting Provider: Sal Lau Consulting Physician: Sal Lau Reason for Consult: abscess, left upper arm Time Spent in preparation of Discharge (in minutes): 31 Diagnosis - Discharge Diagnosis (1) Abscess of left arm Status: Acute (2) Cellulitis of left upper extremity Status: Acute Hospital Course - Lab Results Lab Results: Micro Results 02/08/19 15:45 Blood Blood Culture - Preliminary NO GROWTH AFTER 48 HOURS 02/08/19 15:15 Blood Blood Culture - Preliminary NO GROWTH AFTER 48 HOURS 02/08/19 15:08 Abscess - Arm-Left Gram Stain - Final 02/08/19 15:08 Abscess - Arm-Left Wound Culture - Final Methicillin Resistant S Aureus Most Recent Lab Values WBC 6.7 K/uL (4.8-10.8) 02/10/19 06:41 RBC 4.70 Mil/uL (4.40-5.90) 02/10/19 06:41 Hgb 13.7 g/dL (12.0-18.0) 02/10/19 06:41 Hct 40.5 % (35.0-51.0) 02/10/19 06:41 MCV 86.1 fL (80.0-94.0) 02/10/19 06:41 MCH 29.1 pg (27.0-31.0) 02/10/19 06:41 MCHC 33.8 g/dL (33.0-37.0) 02/10/19 06:41 RDW 12.8 % (11.5-14.5) 02/10/19 06:41 Plt Count 265 K/uL (130-400) 02/10/19 06:41 MPV 7.2 fL (7.2-11.7) 02/10/19 06:41 Neut % (Auto) 50.3 % (50.0-75.0) 02/10/19 06:41 Lymph % (Auto) 35.5 % (20.0-40.0) 02/10/19 06:41 [place] % (Auto) 7.4 % (0.0-10.0) 02/10/19 06:41 Eos % (Auto) 6.2 % (0.0-4.0) H 02/10/19 06:41 Baso % (Auto) 0.6 % (0.0-2.0) 02/10/19 06:41 Neut # (Auto) 3.4 K/uL (1.8-7.0) 02/10/19 06:41 Lymph # (Auto) 2.4 K/uL (1.0-4.3) 02/10/19 06:41 [place] # (Auto) 0.5 K/uL (0.0-0.8) 02/10/19 06:41 Eos # (Auto) 0.4 K/uL (0.0-0.7) 02/10/19 06:41 Baso # (Auto) 0.0 K/uL (0.0-0.2) 02/10/19 06:41 PT 12.4 SECONDS (9.7-12.2) H 02/08/19 20:44 INR 1.1 02/08/19 20:44 Sodium 138 mmol/L (132-148) 02/10/19 06:41 Potassium 3.6 mmol/L (3.6-5.2) 02/10/19 06:41 Chloride 107 mmol/L (98-107) 02/10/19 06:41 Carbon Dioxide 25 mmol/L (22-30) 02/10/19 06:41 Anion Gap 10 (10-20) 02/10/19 06:41 BUN 10 mg/dL (9-20) 02/10/19 06:41 Creatinine 0.9 mg/dL (0.8-1.5) 02/10/19 06:41 Est GFR ( Amer) > 60 02/10/19 06:41 Est GFR (Non-Af Amer) > 60 02/10/19 06:41 Random Glucose 92 mg/dL (75-110) 02/10/19 06:41 Calcium 8.9 mg/dl (8.6-10.4) 02/10/19 06:41 Phosphorus 3.4 mg/dL (2.5-4.5) 02/10/19 06:41 Magnesium 2.1 mg/dL (1.6-2.3) 02/10/19 06:41 Total Bilirubin 0.7 mg/dL (0.2-1.3) 02/10/19 06:41 AST 23 U/L (17-59) 02/10/19 06:41 ALT 6 U/L (21-72) L D 02/10/19 06:41 Alkaline Phosphatase 71 U/L (38-126) 02/10/19 06:41 Total Protein 6.2 g/dL (6.3-8.3) L 02/10/19 06:41 Albumin 3.7 g/dL (3.5-5.0) 02/10/19 06:41 Globulin 2.5 gm/dL (2.2-3.9) 02/10/19 06:41 Albumin/Globulin Ratio 1.5 (1.0-2.1) 02/10/19 06:41 Urine Opiates Screen Negative (NEGATIVE) 02/08/19 18:11 Urine Methadone Screen Negative (NEGATIVE) 02/08/19 18:11 Ur Barbiturates Screen Negative (NEGATIVE) 02/08/19 18:11 Ur Phencyclidine Scrn Negative (NEGATIVE) 02/08/19 18:11 Ur Amphetamines Screen Negative (NEGATIVE) 02/08/19 18:11 U Benzodiazepines Scrn Negative (NEGATIVE) 02/08/19 18:11 U Oth Cocaine Metabols Negative (NEGATIVE) 02/08/19 18:11 U Cannabinoids Screen Negative (NEGATIVE) 02/08/19 18:11 Attending/Attestation - Attestation I have personally seen and examined this patient.: Yes I have fully participated in the care of the patient.: Yes I have reviewed all pertinent clinical information, including history, physical exam and plan: Yes Notes (Text): Patient seen, examined, and case discussed with day-time resident. patient is afebrile, no elevated white count, cellulitis has improved significantly. Wound culture shows MRSA. Wound care instructions provided to tracy basilio's cousin at bedside. Patient to complete PO antibiotic to cover for MRSA. Bactrim DS 1 tab PO BID for 4 more days, Bacid 1 tab PO BID for 30 days. Patient recommended to establish care at the [facility] upon discharge. This is a brief summary of patient's hospitalization. Please see EMR for full detail of record. Discharge Diagnoses: 1. Left Upper Extremity Cellulitis (resolved) Abscess Assessment/Plan * afebrile, no white count * surgery (Dr. Lau) on case help appreciated * Continue IV abx: Vanc 1gm IVPB q12; Zosyn 3.375gm IVPB q6 * Left Upper Extremity CT with contrast (02/09/19); probably cellulitis of ventral distal upper arm. No abscess identified. * Nonextremity US skin thickening suspicous for cellulitis. focal subcutaneous fluid collection without definitive evidence of defined wall. * Tylenol 650mg POq6H PRN moderate pain * Blood cultures (02/08/19): no growth after 48hours X2 * Wound culture and gram stain (02/08/19): MRSA * s/p bedside I&D 02/09 2. PPX * GI PPx: Florastor 250mg po bid * DVT PPx: not indicated * Regular Diet * SCDS b/l
== END 2019-02-10 13:42 | disposition home or self-care (01) ==
LOC: C.ER 12:43 → C.9E 15:56 → C.5S 19:45 → C.9E 19:53 → C.3T 20:20
PROVIDERS: ADMIT Internal Medicine; ATTEND Internal Medicine
DX: L02.414 Cutaneous abscess of left upper limb (principal)
CPT/HCPCS: 10060; 36415; 73202; 76881; 80053; 80324; 80345; 80346; 80349; 80353; 80358; 80361; 83735; 83992; 84100; 85025; 85610; 87040; 87070; 87181; 96365; 99285; G0378; J2543; J3370; J7030; Q9967